=== PATIENT | female | born 1970 | race American Indian/Alaskan Native ===

== ENCOUNTER 2022-03-01 09:40 | Emergency (ER) | payer OTHER ==
--- NOTE | 2022-03-01 10:40 | XRay Report ---
CHEST 2 VIEWS INDICATION / CLINICAL INFORMATION: chest pain. COMPARISON: None available. FINDINGS: SUPPORT DEVICES: None. HEART / MEDIASTINUM: There is prominence of the left hilum. LUNGS / PLEURA: There is airspace consolidation in the left lower lobe with air bronchogram. There ar e patchy parenchymal opacities in the left midlung zone as well. Density in the left mid chest has a somewhat nodular appearance. No pneumothorax. ADDITIONAL FINDINGS: No significant additional findings. IMPRESSION: 1. There is airspace consolidation in the left lower lobe with additional patchy parenchymal opacitie s which have a somewhat nodular appearance in the left midlung zone. This likely represents pneumonia . Follow-up radiograph should be obtained as the next several weeks to ensure complete clearing of th e lungs and to ensure that there is no underlying lesion. 2. The left hilum is prominent. This may represent reactive lymph nodes in the setting of pneumonia. Follow-up chest radiograph should be obtained as the next several weeks to reevaluate. If the nodular density and hilar prominence persist at that time CT imaging of the chest should be obtained. Signer Name: Sanket Phillips MD Signed: 03/01/2022 10:36 AM Workstation Name: [id number]
--- NOTE | 2022-03-01 10:46 | Electrocardiograph Report ---
[facility] Test Date: 2022-03-01 Test Time: 10:10:27 Pat Name: DAVIDSON INTERIANO Department: Room: Gender: F [employer]icles Supervisor: LULÚ WILKERSONB: 1970 Requested By: ED DOC Order Number: [id number] Reading MD: Jt Cruz Measurements Intervals [place] Rate: 109 P: 65 [place]: 128 QRS: 60 QRSD: 74 T: -51 QT: 303 QTc: 408 Interpretive Statements Sinus tachycardia Biatrial enlargement Nonspecific T abnormalities, anterior leads No previous ECG available for comparison Electronically Signed On 03-01-2022 10:46:11 EDT by Jt Cruz
[2022-03-01 11:55] LABS: INR 1.22 (0.87-1.13); Partial Thromboplastin Time 27.9 Sec. (24.2-36.6)
[2022-03-01 12:07] LABS: Creatine Kinase MB 1.4 ng/mL (0.0-4.0)
[2022-03-01 12:09] LABS: Alanine Aminotransferase 14 units/L (7-56); BUN/Creatinine Ratio 17; Blood Urea Nitrogen 15 mg/dL (7-17); Calcium 9.6 mg/dL (8.4-10.2); Hemolysis Index 0
[2022-03-01 13:24] LABS: Hemoglobin 12.7 gm/dl (10.1-14.3); Mean Corpuscular HGB Conc 32 % (30-34); Mean Corpuscular Volume 84 fl (79-97); Platelet Count 253 K/mm3 (140-440); Red Blood Count 4.72 M/mm3 (3.65-5.03); Red Cell Distribution Width 13.6 % (13.2-15.2)
[2022-03-02] MEDS ORDERED: AZITHROMYCIN/NS 500 MG/250 ML 500 MG/250 ML BAG IV ONE (08:51)
[2022-03-02] MEDS ORDERED: cefTRIAXone/NS 2 GM/100 ML 2 GM/100 ML BAG IV ONE (08:51)
[2022-03-02] MEDS ORDERED: SODIUM CHLORIDE 0.9% 1000 ML 1,000 ML IV ONE (08:53)
[2022-03-02 09:30] LABS: Hematocrit 38.7 % (30.3-42.9); Hemoglobin 12.2 gm/dl (10.1-14.3); Mean Corpuscular HGB Conc 32 % (30-34); Mean Corpuscular Volume 84 fl (79-97); Platelet Count 272 K/mm3 (140-440); Red Blood Count 4.61 M/mm3 (3.65-5.03); Red Cell Distribution Width 13.4 % (13.2-15.2)
[2022-03-02 09:45] LABS: BUN/Creatinine Ratio 20; Blood Urea Nitrogen 18 mg/dL (7-17); Calcium 9.7 mg/dL (8.4-10.2); Hemolysis Index 0
--- NOTE | 2022-03-02 10:29 | Emergency Department Report ---
ED General Adult HPI - General Chief complaint: Chest Pain Stated complaint: CHEST PAIN/COUGH UP BLOOD Time Seen by Provider: 03/02/22 09:28 Source: patient Mode of arrival: Ambulatory Limitations: No Limitations - History of Present Illness Initial comments: 51-year-old female presents with productive cough that started about 2 days ago progressively getting worse. Patient has been traveling from [place] to [place] the last 2 days. Patient reports being bitten by an insect on the right arm. The area itches according to patient but without any erythema or warmth. Pt also denies any fever but chills. She has had both series of covid 19 shots and boosted as well. No other modifying or associated factors reported. - Related Data Previous Rx's Medication Instructions Recorded Last Taken Type levoFLOXacin [Levaquin TAB] 500 mg PO QDAY 7 Days #7 tablet NS 03/02/22 Unknown Rx predniSONE [Deltasone] 20 mg PO QDAY 7 Days #7 tab NS 03/02/22 Unknown Rx Allergies Allergy/AdvReac Type Severity Reaction Status Date / Time No Known Allergies Allergy Unverified 03/01/22 10:08 ED Review of Systems ROS: Stated complaint: CHEST PAIN/COUGH UP BLOOD Other details as noted in HPI Comment: All other systems reviewed and negative Respiratory: cough, shortness of breath Skin: rash, pruritus ED Past Medical Hx - Surgical History Past Surgical History?: No - Social History Smoking Status: Never Smoker Substance Use Type: None - Medications Home Medications: Home Medications Medication Instructions Recorded Confirmed Last Taken Type levoFLOXacin [Levaquin TAB] 500 mg PO QDAY 7 Days #7 tablet NS 03/02/22 Unknown Rx predniSONE [Deltasone] 20 mg PO QDAY 7 Days #7 tab NS 03/02/22 Unknown Rx ED Physical Exam - General Limitations: No Limitations General appearance: alert, in no apparent distress - Head Head exam: Present: normal inspection - Eye Eye exam: Present: normal appearance Pupils: Present: normal accommodation - ENT ENT exam: Present: normal exam, normal orophraynx, mucous membranes moist - Neck Neck exam: Present: normal inspection, full ROM. Absent: tenderness - Respiratory Respiratory exam: Present: normal lung sounds bilaterally. Absent: respiratory distress, accessory muscle use - Cardiovascular Cardiovascular Exam: Present: regular rate, normal rhythm, normal heart sounds - GI/Abdominal GI/Abdominal exam: Present: soft, normal bowel sounds. Absent: distended, tenderness - Extremities Exam Extremities exam: Present: normal inspection, full ROM, normal capillary refill. Absent: tenderness, pedal edema, joint swelling - Back Exam Back exam: Absent: tenderness - Neurological Exam Neurological exam: Present: alert, oriented X3 - Psychiatric Psychiatric exam: Present: normal affect, normal mood - Skin Skin exam: Present: warm, normal color ED Course Vital Signs 03/01/22 10:04 Temperature 99.9 F H Pulse Rate 116 H Respiratory 17 Rate Blood Pressure 103/57 O2 Sat by Pulse 100 Oximetry - Reevaluation(s) Reevaluation #1: 03/02/22 10:30 here with productive hemoptysis x 2 days -- and also with likely right arm rash with pruritus-- concern for pneumonia, PE, pneumothorax, upper or lower lungs tract infection, or OH to rule these out will order routine labs including CBC, CMP, CXR -- and treat accordingly-- Reevaluation #2: 03/02/22 10:33 CXR --noted with FINDINGS: SUPPORT DEVICES: None. HEART / MEDIASTINUM: There is prominence of the left hilum. LUNGS / PLEURA: There is airspace consolidation in the left lower lobe with air bronchogram. There are patchy parenchymal opacities in the left midlung zone as well. Density in the left mid chest has a somewhat nodular appearance. No pneumothorax. ADDITIONAL FINDINGS: No significant additional findings. IMPRESSION: 1. There is airspace consolidation in the left lower lobe with additional patchy parenchymal opacities which have a somewhat nodular appearance in the left midlung zone. This likely represents pneumonia. Follow-up radiograph should be obtained as the next several weeks to ensure complete clearing of the lungs and to ensure that there is no underlying lesion. 2. The left hilum is prominent. This may represent reactive lymph nodes in the setting of pneumonia. Follow-up chest radiograph should be obtained as the next several weeks to reevaluate. If the nodular density and hilar prominence persist at that time CT imaging of the chest should be obtained. With the above findings --will get patient started on ivf ns 1L bolus and antibiotics -- 03/02/22 10:36 Given Rocephin 1g and Azithromycin-- Reevaluation #3: 03/02/22 10:37 With Calculated pneumonia severity index with [id number] -- pt score zero -- so will have this patient can be safely discharge home to continue PO antibiotics with close follow and warning to return if symptoms worsen ED Medical Decision Making - Lab Data Result diagrams: 03/02/22 09:02 03/02/22 09:02 Critical care attestation.: If time is entered above; I have spent that time in minutes in the direct care of this critically ill patient, excluding procedure time. ED Disposition Clinical Impression: Pneumonia Qualifiers: Pneumonia type: due to unspecified organism Laterality: left Lung location: lower lobe of lung Qualified Code(s): J18.9 - Pneumonia, unspecified organism Allergy Qualifiers: Encounter type: initial encounter Qualified Code(s): T78.40XA - Allergy, unspecified, initial encounter Disposition: HOME / SELF CARE / HOMELESS Is pt being admited?: No Does the pt Need Aspirin: No Condition: Stable Instructions: Bacterial Pneumonia (ED), Allergies, Adult, [id number], Cough, Adult, [id number], Community-Acquired Pneumonia, Adult, [id number] Additional Instructions: It is very important that you take and complete your antibiotics as prescribed to continue to help your symptoms Call and schedule follow-up with your primary doctor in the next 3 to 5 days for progress Please do not hesitate to call or return to emergency if your symptoms worsen Prescriptions: predniSONE [Deltasone] 20 mg PO QDAY 7 Days #7 tab NS levoFLOXacin [Levaquin TAB] 500 mg PO QDAY 7 Days #7 tablet NS Referrals: GIL CRAMER MD [Referring] - 3-5 Days Time of Disposition: 10:41
[2022-03-02 11:38] VITALS: BP 128/80
== END 2022-03-02 11:17 | disposition home or self-care (01) ==
LOC: ED 09:40
DX: T78.40XA Allergy, unspecified, initial encounter (principal); J18.9 Pneumonia, unspecified organism; W57.XXXA Bitten or stung by nonvenomous insect and other nonvenomous arthropods, initial encounter
CPT/HCPCS: 36415; 71046; 80048; 80053; 82140; 82550; 82553; 84484; 85025; 85027; 85610; 85730; 93005; 96365; 96368; 99284; J0456; J0696; J7030